=== PATIENT | female | born 1985 | race Caucasian/White ===

== ENCOUNTER 2019-05-03 17:49 | Emergency (ER) | payer OTHER, SELFPAY ==
[2019-05-03 18:02] VITALS: BP 123/71; PULSE 100; RESP 23; O2SAT 97; BMI 34.0
--- NOTE | 2019-05-03 18:14 | ED.SYNCOPE ---
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 She was participating kickball this afternoon, she fell lightheaded felt the ground was spinning and had decreased hearing. She felt that she needed to sit down to rest and she had a glass of water. Then, she had a episode of vomiting and do not remember until she aroused from syncopal episode. She denies injury from this for hitting her head on the ground. She denies having chest pain, breathing difficulty, severe headache prior to this. She reports she feels pretty well at this time. She denies a previous syncopal episode or cardiac history. Due to PCOS, she does not have regular menstruation and she is currently on oral control medication. According to EMS, initially her heart rate was at 20 is with sinus tach. Related Data Home Medications Medication Instructions Recorded Confirmed ipratropium-albuterol 3 ml INH PRN #0 05/27/17 Review of Systems <JOSE Potter - Last Filed: 05/03/19 21:19> Review of Systems General: Denies fever, chills, fatigue, malaise, sweats. HEENT: Denies sinus pain, ear pain, sore throat, difficulty swallowing, dizziness. Respiratory: Denies dyspnea, cough, wheezing, hemoptysis, sputum. Cardiovascular: Denies chest pain, palpitations, orthopnea, edema. Gastrointestinal: Head nausea and 1x vomiting. Denies abdominal pain, diarrhea, constipation, melena. : Denies dysuria, frequency, incontinence, hematuria, urinary retention. Musculoskeletal: Denies weakness, joint pain or bony pain. Skin: Denies rash, skin lesions, or other. Neurologic: Reports has dizziness, spinning sensation prior to syncope. Denies weakness, headache, numbness, change in speech, confusion, seizures, incoordination. Psychiatric: No concerning psychosocial issues. 12-point review of systems is negative except for those stated above. PFSH <JOSE Potter - Last Filed: 05/03/19 21:19> Medical History Acne (Acute) Asthma (Acute) PCOS (polycystic ovarian syndrome) (Acute) Surgical History History of primary section (Chronic) Social History Smoking Status: Never smoker Social History Smoking Status: Never smoker Exam <JOSE Potter - Last Filed: 05/03/19 21:19> Narrative Exam Narrative: GEN: Alert, oriented x 3, well appearing and nourished, and in no acute distress. Head: Normal cephalic, atraumatic. No scalp or temporal tenderness, palpable mass or rash. EYES: Pupils are equal, round, and reactive to light and accommodation. Extraocular muscles are intact bilaterally. There is no subconjunctival hemorrhage, exudate and sclera non-icteric. ENT: Bilateral auditory canals and tympanic membranes. Hearing grossly intact. Nose without bleeding, purulent discharge. Facial sinuses nontender to palpate. Mucous membrane moist, no mucosal lesion. Throat without erythema, tonsillar hypertrophy or exudate. Uvula in midline, airway patent. Neck: Trachea in midline. No JVD, non-tender without lymphadenopathy. No masses or thyroid megaly. Supple, non-tender and no meningeal signs. CARDIAC: Normal regular rate and rhythm without murmurs, gallops, or rubs. No chest wall tenderness. No peripheral edema, cyanosis or pallor. Capillary refill is less than 2 seconds. RESPIRATORY: Lungs are cleat to auscultate bilaterally. No cough, wheezes, rales, or rhonchi. No stridor, respiratory distress, increase work of breathing, or accessary muscle used. ABD: Abdomen soft, nontender and non-distended. No guarding or rebound tenderness to palpate. Bowel sounds are normal in all 4 quadrants. There is no palpable masses or organomegaly. EXT: Full painless ROM of all extremities with no loss of sensation, strength, effusion or edema. SKIN: Warm, dry, normal color for patient. No erythema, lesions or rash. BACK: Nontender without deformity or crepitance. No flank tenderness. NEUROLOGICAL: Alert and oriented to place, time and person. Sensation and motor function intact bilaterally. No facial droops, dysphasia. PSYCHIATRIC: Good judgement and reason, without hallucinations, abnormal affect or abnormal behaviors during the examination. Initial Vital Signs Initial Vital Signs: Vital Signs Pulse Rate 100 H 05/03/19 18:02 Respiratory Rate 23 05/03/19 18:02 Blood Pressure 123/71 05/03/19 18:02 Pulse Oximetry 97 05/03/19 18:02 Neuro General: alert, awake, oriented x3, tone normal, moves all extremities, no focal motor deficits and CN's II-XI intact bilaterally Cognition: normal cognition Speech: speech normal <Negrita Clark DO - Last Filed: 05/04/19 02:57> Initial Vital Signs Initial Vital Signs: Vital Signs Pulse Rate 100 H 05/03/19 18:02 Respiratory Rate 23 05/03/19 18:02 Blood Pressure 123/71 05/03/19 18:02 Pulse Oximetry 97 05/03/19 18:02 Course <JOSE Potter - Last Filed: 05/03/19 21:19> Orders Ordered: ED Orders 05/03/19 18:00 EKG-12 Lead Stat 05/03/19 18:12 Complete Blood Count AUTO DIFF Stat Comprehensive Metabolic Panel Stat Troponin & CK Cardiac Panel Stat 05/03/19 19:50 Urine Microscopic Stat 05/03/19 20:11 XR chest 1V Stat Vital Signs - 8 hr 05/03/19 19:30 05/03/19 20:55 Pulse Rate 100 H 93 H Respiratory Rate 20 16 Blood Pressure [Right Arm] 110/65 126/72 Pulse Oximetry 100 96 <DO Brandon Aguilar Last Filed: 05/04/19 02:57> Orders Ordered: ED Orders 05/03/19 18:00 EKG-12 Lead Stat 05/03/19 18:12 Complete Blood Count AUTO DIFF Stat Comprehensive Metabolic Panel Stat Troponin & CK Cardiac Panel Stat 05/03/19 19:50 Urine Microscopic Stat 05/03/19 20:11 XR chest 1V Stat Vital Signs - 8 hr 05/03/19 19:30 05/03/19 20:55 Pulse Rate 100 H 93 H Respiratory Rate 20 16 Blood Pressure [Right Arm] 110/65 126/72 Pulse Oximetry 100 96 MDM - Syncope <MONSTER PotterP - Last Filed: 05/03/19 21:19> Differential Diagnosis Likely syncope due to orthostatic hypotension and dehydration Medical Records Attestation: I reviewed the patient's medical records. Lab Data Attestation: I reviewed the patient's lab results. Result diagrams: 05/03/19 18:12 05/03/19 18:12 Lab Results 05/03/19 05/03/19 05/03/19 Range/Units 18:12 18:12 19:50 WBC 13.0 H (4.5-11.0) X10^3/uL RBC 4.83 (4.0-5.2) X10^6/uL Hgb 13.4 (12.0-16.0) g/dL Hct 39.9 (36-46) % MCV 82.6 (80-100) fL MCH 27.7 (26-34) PG MCHC 33.5 (30-36) % RDW 14.0 (11.6-14.8) % Plt Count 399 (150-400) X10^3/uL Neut % (Auto) 84.4 H (50-75) % Lymph % (Auto) 10.7 L (25-40) % Ritchie % (Auto) 3.8 (3-14) % Eos % (Auto) 0.6 L (2-4) % Baso % (Auto) 0.5 (0-2) % Neut # (Auto) 99116 H (4925-0344) /uL Lymph # (Auto) 1400 (9308-9101) /uL Ritchie # (Auto) 500 (0-900) /uL Eos # (Auto) 100 (0-450) /uL Baso # (Auto) 100 (0-100) /uL Sodium 141 (137-145) mmol/L Potassium 4.3 (3.4-5.1) mmol/L Chloride 106 (98-107) mmol/L Carbon Dioxide 23 (22-32) mmol/L BUN 10 (7-17) mg/dL Creatinine 0.60 (0.52-1.04) mg/dL Estimated GFR > 60.0 (>60) mL/min BUN/Creatinine Ratio 16.7 (6-22) Glucose 105 H (70-100) mg/dL Calcium 9.7 (8.4-10.2) mg/dL Total Bilirubin 0.4 (0.2-1.3) mg/dL AST 24 (14-36) IU/L ALT 17 (9-52) IU/L Alkaline Phosphatase 64 (38-126) U/L Total Creatine Kinase 73 (30-135) U/L CK-MB (CK-2) TNP CK-MB (CK-2) Rel Index TNP Troponin I < 0.012 (0.01-0.034) ng/mL Total Protein 8.5 H (6.3-8.2) g/dL Albumin 4.7 (3.5-5.0) g/dL Globulin 3.8 (1.7-4.1) g/dL Albumin/Globulin Ratio 1.2 (1.0-2.8) Urine RBC 0-1/hpf (0-5/HPF) Urine WBC 1-5/hpf (0-5/HPF) Ur Squamous Epith Cells 10-30 /hpf H (0-5/HPF) Ur Transition Epith Cell 0-1/hpf (0-5/HPF) Urine Bacteria Moderate (10-30) H (None) Hyaline Casts 5-10/lpf (None) Granular Casts 5-10/lpf (None) Urine Mucus 2+ H (Negative) Ur Culture Indicated? Cult not indicated Urine Dip Bedside Urine Glucose Negative Bedside Urine Bilirubin - Negative Bedside Urine Ketone ++ 40 Urine Specific Emily 1.025 Bedside Urine Occult Blood +/- Bedside Urine pH 6.0 Bedside Urine Protein + 30 Bedside Urine Urobilinogen - Negative Bedside Urine Nitrite - Negative Bedside Urine Leukocytes - Negative Esterase Imaging Data Chest x-ray: Radiologist's impression: Mayda Ray 33 F [address] [address] XRay Report Signed Patient: Mayda Ray RMR#: [id number] : 1985Acct:[id number] Age/Sex: 33 / FDate of Service: 05/03/19 Loc: ED Accession Number: [id number] Procedure: XR chest 1V Ordering Provider: Osbaldo Borrero PROCEDURE: XR CHEST 1V INDICATIONS: syncopal episode TECHNIQUE: One view of the chest was acquired. COMPARISON: CXR 09/22/2007. FINDINGS: Surgical changes and devices: None. Lungs and pleura: Lungs are clear. No pleural effusions or pneumothorax. Mediastinum: Mediastinal contours appear normal. Heart size is normal. Bones and chest wall: No suspicious bony lesions. Overlying soft tissues appear unremarkable. IMPRESSION: No acute cardiopulmonary abnormality. Dictated by: Yuriy Person M.D. on 05/03/2019 at 20:45 Approved by: Yuriy Person M.D. on 05/03/2019 at 20:45 ECG Data Attestation: I personally reviewed and interpreted this ECG as follows: Prior ECG tracings: available for review Interpretation: Sinus rhythm rate at eighty sixty with a normal Stanley. No ST elevation or depression. MDM Narrative Medical decision making narrative: This is a pleasant 33-year-old female who was brought in by [employer] medics after patient had a syncopal episode after patient had an syncopal episode when she was participating she kicked a ball. The patient reports she was feeling dizzy and had to sit down to rest. She had a cup of water to drink and does not remember until she woke from the syncope. She reports she was feeling well prior to the syncopal episode. She has no history of previous cardiac history or syncope. The patient denies feeling dehydrated prior to this. The patient's EKG was normal sinus rhythm in its rate 86. The patient's chemistry was unremarkable including troponin. Her chest x-ray was negative for acute findings. White count was mildly elevated along neutrophil. Urine sample appears to without obvious infection and possibly contaminated rincon sample was obtained. The patient does not endorse have any urinary symptoms such as urgency frequency, frequency or dysuria. Patient had right hand IV site infiltration in route by medics. She complained of pain and declines IV restart if possible. Patient was hydrated orally while in the ED without nausea and vomiting. We discussed in length of return precautions and the patient's father states patient will be staying with him tonight. Patient advised to follow up with her primary care physician in 2-3 days for re-evaluation and further testing for the cause of syncopal episode. The patient agrees with treatment plan and no further questions were expressed at this time. <Negrita Clark, DO - Last Filed: 05/04/19 02:57> Lab Data Lab Results 05/03/19 05/03/19 05/03/19 Range/Units 18:12 18:12 19:50 WBC 13.0 H (4.5-11.0) X10^3/uL RBC 4.83 (4.0-5.2) X10^6/uL Hgb 13.4 (12.0-16.0) g/dL Hct 39.9 (36-46) % MCV 82.6 (80-100) fL MCH 27.7 (26-34) PG MCHC 33.5 (30-36) % RDW 14.0 (11.6-14.8) % Plt Count 399 (150-400) X10^3/uL Neut % (Auto) 84.4 H (50-75) % Lymph % (Auto) 10.7 L (25-40) % Ritchie % (Auto) 3.8 (3-14) % Eos % (Auto) 0.6 L (2-4) % Baso % (Auto) 0.5 (0-2) % Neut # (Auto) 37060 H (6786-2211) /uL Lymph # (Auto) 1400 (1450-3268) /uL Ritchie # (Auto) 500 (0-900) /uL Eos # (Auto) 100 (0-450) /uL Baso # (Auto) 100 (0-100) /uL Sodium 141 (137-145) mmol/L Potassium 4.3 (3.4-5.1) mmol/L Chloride 106 (98-107) mmol/L Carbon Dioxide 23 (22-32) mmol/L BUN 10 (7-17) mg/dL Creatinine 0.60 (0.52-1.04) mg/dL Estimated GFR > 60.0 (>60) mL/min BUN/Creatinine Ratio 16.7 (6-22) Glucose 105 H (70-100) mg/dL Calcium 9.7 (8.4-10.2) mg/dL Total Bilirubin 0.4 (0.2-1.3) mg/dL AST 24 (14-36) IU/L ALT 17 (9-52) IU/L Alkaline Phosphatase 64 (38-126) U/L Total Creatine Kinase 73 (30-135) U/L CK-MB (CK-2) TNP CK-MB (CK-2) Rel Index TNP Troponin I < 0.012 (0.01-0.034) ng/mL Total Protein 8.5 H (6.3-8.2) g/dL Albumin 4.7 (3.5-5.0) g/dL Globulin 3.8 (1.7-4.1) g/dL Albumin/Globulin Ratio 1.2 (1.0-2.8) Urine RBC 0-1/hpf (0-5/HPF) Urine WBC 1-5/hpf (0-5/HPF) Ur Squamous Epith Cells 10-30 /hpf H (0-5/HPF) Ur Transition Epith Cell 0-1/hpf (0-5/HPF) Urine Bacteria Moderate (10-30) H (None) Hyaline Casts 5-10/lpf (None) Granular Casts 5-10/lpf (None) Urine Mucus 2+ H (Negative) Ur Culture Indicated? Cult not indicated Urine Dip Bedside Urine Glucose Negative Bedside Urine Bilirubin - Negative Bedside Urine Ketone ++ 40 Urine Specific Emily 1.025 Bedside Urine Occult Blood +/- Bedside Urine pH 6.0 Bedside Urine Protein + 30 Bedside Urine Urobilinogen - Negative Bedside Urine Nitrite - Negative Bedside Urine Leukocytes - Negative Esterase ECG Data Attestation: I personally reviewed and interpreted this ECG as follows: Prior ECG tracings: not available for review Interpretation: Normal sinus rhythm rate 86 P are interval [address] elevation ST changes noted in inferior leads likely benign early physician all no concordant ST depressions or T-wave inversions. Discharge Plan Departure Patient Disposition: Home Clinical Impression: Syncope Qualifiers: Syncope type: unspecified Qualified Code(s): R55 - Syncope and collapse Discharge Date/Time: 05/03/19 21:10 Interventions: ED Discharge Assessment Last Done: 05/03/19 21:12 Instructions: DI for Syncope in Adults (Fainting) Activity Restrictions/Additional Instructions: You have been diagnosed with [syncope/passing out. You're EKG looked good as sinus rhythm rate at 85. Your blood test was unremarkable including cardiac enzymes. However, your white blood cell count was mildly elevated. Your urine sample does not appear to be infected but possibly contaminated sample. You're chest x-ray was negative for acute findings.]. What to do: *Take your medications as directed. There is no new medications to go home. *Follow up with your primary care provider in 2-3 days, call for an appointment. Let them know you were seen in the ED and that we asked you to be seen in follow up. *Return to ED if you have any new, worsening, or concerning symptoms, such as [fainting episodes, chest pain, breathing difficulty, fatigue, unable to tolerate fluids, fever, severe headache or any acute concerns]. Prescriptions: No Action ipratropium-albuterol 3 ML solution for nebulization 3 ml INH PRNQty: 0 RF: 0 Referrals: [facility] [Outside] <Negrita Clark DO - Last Filed: 05/04/19 02:57> Cosign ED Attending Loretta Attestation: I was immediately available in the department for consultation. Documentation has been reviewed. I agree with assessment and plan.
[2019-05-03 18:20] LABS: Add Manual Diff / Slide Review NO; Basophils Absolute Auto 100 /uL (0-100); Basophils Percent Auto 0.5 % (0-2); Eosinophils Absolute Auto 100 /uL (0-450); Eosinophils Percent Auto 0.6 % (2-4); Hematocrit 39.9 % (36-46); Hemoglobin 13.4 g/dL (12.0-16.0); Lymphocytes Absolute Auto 1400 /uL (1100-4500); Lymphocytes Percent Auto 10.7 % (25-40); Mean Corpuscular HGB Conc 33.5 % (30-36); Mean Corpuscular Hemoglobin 27.7 PG (26-34); Mean Corpuscular Volume 82.6 fL (80-100); Monocytes Absolute Auto 500 /uL (0-900); Monocytes Percent Auto 3.8 % (3-14); Neutrophils Absolute Auto 11000 /uL (1500-7000); Neutrophils Percent Auto 84.4 % (50-75); Platelet Count 399 X10^3/uL (150-400); Red Blood Cell Count 4.83 X10^6/uL (4.0-5.2)
--- NOTE | 2019-05-03 18:22 | ED_ITS ---
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 She was participating kickball this afternoon, she fell lightheaded felt the ground was spinning and had decreased hearing. She felt that she needed to sit down to rest and she had a glass of water. Then, she had a episode of vomiting and do not remember until she aroused from syncopal episode. She denies injury from this for hitting her head on the ground. She denies having chest pain, breathing difficulty, severe headache prior to this. She reports she feels pretty well at this time. She denies a previous syncopal episode or cardiac history. Due to PCOS, she does not have regular menstruation and she is currently on oral control medication. According to EMS, initially her heart rate was at 20 is with sinus tach. Related Data Home Medications Medication Instructions Recorded Confirmed ipratropium-albuterol 3 ml INH PRN #0 05/27/17 Review of Systems <Osbaldo NapolesBrandonJOSE Dorantes - Last Filed: 05/03/19 21:19> Review of Systems General: Denies fever, chills, fatigue, malaise, sweats. HEENT: Denies sinus pain, ear pain, sore throat, difficulty swallowing, dizziness. Respiratory: Denies dyspnea, cough, wheezing, hemoptysis, sputum. Cardiovascular: Denies chest pain, palpitations, orthopnea, edema. Gastrointestinal: Head nausea and 1x vomiting. Denies abdominal pain, d iarrhea, constipation, melena. : Denies dysuria, frequency, incontinence, hematuria, urinary retention. Musculoskeletal: Denies weakness, joint pain or bony pain. Skin: Denies rash, skin lesions, or other. Neurologic: Reports has dizziness, spinning sensation prior to syncope. Denies weakness, headache, numbness, change in speech, confusion, seizures, incoordination. Psychiatric: No concerning psychosocial issues. 12-point review of systems is negative except for those stated above. PFSH <JOSE Potter - Last Filed: 05/03/19 21:19> Medical History Acne (Acute) Asthma (Acute) PCOS (polycystic ovarian syndrome) (Acute) Surgical History History of primary section (Chronic) Social History Smoking Status: Never smoker Social History Smoking Status: Never smoker Exam <JOSE Potter - Last Filed: 05/03/19 21:19> Narrative Exam Narrative: GEN: Alert, oriented x 3, well appearing and nourished, and in no acute distress. Head: Normal cephalic, atraumatic. No scalp or temporal tenderness, palpable mass or rash. EYES: Pupils are equal, round, and reactive to light and accommodation. Extraocular muscles are intact bilaterally. There is no subconjunctival hemorrhage, exudate and sclera non-icteric. ENT: Bilateral auditory canals and tympanic membranes. Hearing grossly intact. Nose without bleeding, purulent discharge. Facial sinuses nontender to palpate. Mucous membrane moist, no mucosal lesion. Throat without erythema, tonsillar hypertrophy or exudate. Uvula in midline, airway patent. Neck: Trachea in midline. No JVD, non-tender without lymphadenopathy. No masses or thyroid megaly. Supple, non-tender and no meningeal signs. CARDIAC: Normal regular rate and rhythm without murmurs, gallops, or rubs. No chest wall tenderness. No peripheral edema, cyanosis or pallor. Capillary refill is less than 2 seconds. RESPIRATORY: Lungs are cleat to auscultate bilaterally. No cough, wheezes, rales, or rhonchi. No stridor, respiratory distress, increase work of breathing, or accessary muscle used. ABD: Abdomen soft, nontender and non-distended. No guarding or rebound tenderness to palpate. Bowel sounds are normal in all 4 quadrants. There is no palpable masses or organomegaly. EXT: Full painless ROM of all extremities with no loss of sensation, strength, effusion or edema. SKIN: Warm, dry, normal color for patient. No erythema, lesions or rash. BACK: Nontender without deformity or crepitance. No flank tenderness. NEUROLOGICAL: Alert and oriented to place, time and person. Sensation and motor function intact bilaterally. No facial droops, dysphasia. PSYCHIATRIC: Good judgement and reason, without hallucinations, abnormal affect or abnormal behaviors during the examination. Initial Vital Signs Initial Vital Signs: Vital Signs Pulse Rate 100 H 05/03/19 18:02 Respiratory Rate 23 05/03/19 18:02 Blood Pressure 123/71 05/03/19 18:02 Pulse Oximetry 97 05/03/19 18:02 Neuro General: alert, awake, oriented x3, tone normal, moves all extremities, no focal motor deficits and CN's II-XI intact bilaterally Cognition: normal cognition Speech: speech normal <Negrita Clark DO - Last Filed: 05/04/19 02:57> Initial Vital Signs Initial Vital Signs: Vital Signs Pulse Rate 100 H 05/03/19 18:02 Respiratory Rate 23 05/03/19 18:02 Blood Pressure 123/71 05/03/19 18:02 Pulse Oximetry 97 05/03/19 18:02 Course <JOSE Potter - Last Filed: 05/03/19 21:19> Orders Ordered: ED Orders 05/03/19 18:00 EKG-12 Lead Stat 05/03/19 18:12 Complete Blood Count AUTO DIFF Stat Comprehensive Metabolic Panel Stat Troponin & CK Cardiac Panel Stat 05/03/19 19:50 Urine Microscopic Stat 05/03/19 20:11 XR chest 1V Stat Vital Signs - 8 hr 05/03/19 19:30 05/03/19 20:55 Pulse Rate 100 H 93 H Respiratory Rate 20 16 Blood Pressure [Right Arm] 110/65 126/72 Pulse Oximetry 100 96 <DO Brandon Aguilar Last Filed: 05/04/19 02:57> Orders Ordered: ED Orders 05/03/19 18:00 EKG-12 Lead Stat 05/03/19 18:12 Complete Blood Count AUTO DIFF Stat Comprehensive Metabolic Panel Stat Troponin & CK Cardiac Panel Stat 05/03/19 19:50 Urine Microscopic Stat 05/03/19 20:11 XR chest 1V Stat Vital Signs - 8 hr 05/03/19 19:30 05/03/19 20:55 Pulse Rate 100 H 93 H Respiratory Rate 20 16 Blood Pressure [Right Arm] 110/65 126/72 Pulse Oximetry 100 96 MDM - Syncope <MONSTER PotterP - Last Filed: 05/03/19 21:19> Differential Diagnosis Likely syncope due to orthostatic hypotension and dehydration Medical Records Attestation: I reviewed the patient's medical records. Lab Data Attestation: I reviewed the patient's lab results. Result diagrams: 05/03/19 18:12 05/03/19 18:12 Lab Results 05/03/19 05/03/19 05/03/19 Range/Units 18:12 18:12 19:50 WBC 13.0 H (4.5-11.0) X10^3/uL RBC 4.83 (4.0-5.2) X10^6/uL Hgb 13.4 (12.0-16.0) g/dL Hct 39.9 (36-46) % MCV 82.6 (80-100) fL MCH 27.7 (26-34) PG MCHC 33.5 (30-36) % RDW 14.0 (11.6-14.8) % Plt Count 399 (150-400) X10^3/uL Neut % (Auto) 84.4 H (50-75) % Lymph % (Auto) 10.7 L (25-40) % Johnston % (Auto) 3.8 (3-14) % Eos % (Auto) 0.6 L (2-4) % Baso % (Auto) 0.5 (0-2) % Neut # (Auto) 26099 H (4333-8597) /uL Lymph # (Auto) 1400 (7206-2447) /uL Johnston # (Auto) 500 (0-900) /uL Eos # (Auto) 100 (0-450) /uL Baso # (Auto) 100 (0-100) /uL Sodium 141 (137-145) mmol/L Potassium 4.3 (3.4-5.1) mmol/L Chloride 106 (98-107) mmol/L Carbon Dioxide 23 (22-32) mmol/L BUN 10 (7-17) mg/dL Creatinine 0.60 (0.52-1.04) mg/dL Estimated GFR > 60.0 (>60) mL/min BUN/Creatinine Ratio 16.7 (6-22) Glucose 105 H (70-100) mg/dL Calcium 9.7 (8.4-10.2) mg/dL Total Bilirubin 0.4 (0.2-1.3) mg/dL AST 24 (14-36) IU/L ALT 17 (9-52) IU/L Alkaline Phosphatase 64 (38-126) U/L Total Creatine Kinase 73 (30-135) U/L CK-MB (CK-2) TNP CK-MB (CK-2) Rel Index TNP Troponin I < 0.012 (0.01-0.034) ng/mL Total Protein 8.5 H (6.3-8.2) g/dL Albumin 4.7 (3.5-5.0) g/dL Globulin 3.8 (1.7-4.1) g/dL Albumin/Globulin Ratio 1.2 (1.0-2.8) Urine RBC 0-1/hpf (0-5/HPF) Urine WBC 1-5/hpf (0-5/HPF) Ur Squamous Epith Cells 10-30 /hpf H (0-5/HPF) Ur Transition Epith Cell 0-1/hpf (0-5/HPF) Urine Bacteria Moderate (10-30) H (None) Hyaline Casts 5-10/lpf (None) Granular Casts 5-10/lpf (None) Urine Mucus 2+ H (Negative) Ur Culture Indicated? Cult not indicated Urine Dip Bedside Urine Glucose Negative Bedside Urine Bilirubin - Negative Bedside Urine Ketone ++ 40 Urine Specific [place] 1.025 Bedside Urine Occult Blood +/- Bedside Urine pH 6.0 Bedside Urine Protein + 30 Bedside Urine Urobilinogen - Negative Bedside Urine Nitrite - Negative Bedside Urine Leukocytes - Negative Esterase Imaging Data Chest x-ray: Radiologist's impression: Mayda Ray R 33 F [address] [address] XRay Report Signed Patient: Mayda Ray RMR#: [id number] : 1985Acct:[id number] Age/Sex: 33 / FDate of Service: 05/03/19 Loc: ED Accession Number: [id number] Procedure: XR chest 1V Ordering Provider: Osbaldo Borrero PROCEDURE: XR CHEST 1V INDICATIONS: syncopal episode TECHNIQUE: One view of the chest was acquired. COMPARISON: CXR 09/22/2007. FINDINGS: Surgical changes and devices: None. Lungs and pleura: Lungs are clear. No pleural effusions or pneumothorax. Mediastinum: Mediastinal contours appear normal. Heart size is normal. Bones and chest wall: No suspicious bony lesions. Overlying soft tissues appear unremarkable. IMPRESSION: No acute cardiopulmonary abnormality. Dictated by: Yuriy Person M.D. on 05/03/2019 at 20:45 Approved by: Yuriy Person M.D. on 05/03/2019 at 20:45 ECG Data Attestation: I personally reviewed and interpreted this ECG as follows: Prior ECG tracings: available for review Interpretation: Sinus rhythm rate at eighty sixty with a normal [place]. No ST elevation or depression. MDM Narrative Medical decision making narrative: This is a pleasant 33-year-old female who was brought in by [employer] medics after patient had a syncopal episode after patient had an syncopal episode when she was participating she kicked a ball. The patient reports she was feeling dizzy and had to sit down to rest. She had a cup of water to drink and does not remember until she woke from the syncope. She reports she was feeling well prior to the syncopal episode. She has no history of previous cardiac history or syncope. The patient denies feeling dehydrated prior to this. The patient's EKG was normal sinus rhythm in its rate 86. The patient's chemistry was unremarkable including troponin. Her chest x- ray was negative for acute findings. White count was mildly elevated along neutrophil. Urine sample appears to without obvious infection and possibly contaminated [place] sample was obtained. The patient does not endorse have any urinary symptoms such as urgency frequency, frequency or dysuria. Patient had right hand IV site infiltration in route by medics. She complained of pain and declines IV restart if possible. Patient was hydrated orally while in the ED without nausea and vomiting. We discussed in length of return precautions and the patient's father states patient will be staying with him tonight. Patient advised to follow up with her primary care physician in 2-3 days for re- evaluation and further testing for the cause of syncopal episode. The patient agrees with treatment plan and no further questions were expressed at this time. <Negrita Clark, DO - Last Filed: 05/04/19 02:57> Lab Data Lab Results 05/03/19 05/03/19 05/03/19 Range/Units 18:12 18:12 19:50 WBC 13.0 H (4.5-11.0) X10^3/uL RBC 4.83 (4.0-5.2) X10^6/uL Hgb 13.4 (12.0-16.0) g/dL Hct 39.9 (36-46) % MCV 82.6 (80-100) fL MCH 27.7 (26-34) PG MCHC 33.5 (30-36) % RDW 14.0 (11.6-14.8) % Plt Count 399 (150-400) X10^3/uL Neut % (Auto) 84.4 H (50-75) % Lymph % (Auto) 10.7 L (25-40) % Johnston % (Auto) 3.8 (3-14) % Eos % (Auto) 0.6 L (2-4) % Baso % (Auto) 0.5 (0-2) % Neut # (Auto) 30342 H (0714-0465) /uL Lymph # (Auto) 1400 (8683-2757) /uL Johnston # (Auto) 500 (0-900) /uL Eos # (Auto) 100 (0-450) /uL Baso # (Auto) 100 (0-100) /uL Sodium 141 (137-145) mmol/L Potassium 4.3 (3.4-5.1) mmol/L Chloride 106 (98-107) mmol/L Carbon Dioxide 23 (22-32) mmol/L BUN 10 (7-17) mg/dL Creatinine 0.60 (0.52-1.04) mg/dL Estimated GFR > 60.0 (>60) mL/min BUN/Creatinine Ratio 16.7 (6-22) Glucose 105 H (70-100) mg/dL Calcium 9.7 (8.4-10.2) mg/dL Total Bilirubin 0.4 (0.2-1.3) mg/dL AST 24 (14-36) IU/L ALT 17 (9-52) IU/L Alkaline Phosphatase 64 (38-126) U/L Total Creatine Kinase 73 (30-135) U/L CK-MB (CK-2) TNP CK-MB (CK-2) Rel Index TNP Troponin I < 0.012 (0.01-0.034) ng/mL Total Protein 8.5 H (6.3-8.2) g/dL Albumin 4.7 (3.5-5.0) g/dL Globulin 3.8 (1.7-4.1) g/dL Albumin/Globulin Ratio 1.2 (1.0-2.8) Urine RBC 0-1/hpf (0-5/HPF) Urine WBC 1-5/hpf (0-5/HPF) Ur Squamous Epith Cells 10-30 /hpf H (0-5/HPF) Ur Transition Epith Cell 0-1/hpf (0-5/HPF) Urine Bacteria Moderate (10-30) H (None) Hyaline Casts 5-10/lpf (None) Granular Casts 5-10/lpf (None) Urine Mucus 2+ H (Negative) Ur Culture Indicated? Cult not indicated Urine Dip Bedside Urine Glucose Negative Bedside Urine Bilirubin - Negative Bedside Urine Ketone ++ 40 Urine Specific [place] 1.025 Bedside Urine Occult Blood +/- Bedside Urine pH 6.0 Bedside Urine Protein + 30 Bedside Urine Urobilinogen - Negative Bedside Urine Nitrite - Negative Bedside Urine Leukocytes - Negative Esterase ECG Data Attestation: I personally reviewed and interpreted this ECG as follows: Prior ECG tracings: not available for review Interpretation: Normal sinus rhythm rate 86 P are interval [address] elevation ST changes noted in inferior leads likely benign early physician all no concordant ST depressions or T-wave inversions. Discharge Plan Departure Patient Disposition: Home Clinical Impression: Syncope Qualifiers: Syncope type: unspecified Qualified Code(s): R55 - Syncope and collapse Discharge Date/Time: 05/03/19 21:10 Interventions: ED Discharge Assessment Last Done: 05/03/19 21:12 Instructions: DI for Syncope in Adults (Fainting) Activity Restrictions/Additional Instructions: You have been diagnosed with [syncope/passing out. You're EKG looked good as sinus rhythm rate at 85. Your blood test was unremarkable including cardiac enzymes. However, your white blood cell count was mildly elevated. Your urine sample does not appear to be infected but possibly contaminated sample. You're chest x-ray was negative for acute findings.]. What to do: *Take your medications as directed. There is no new medications to go home. *Follow up with your primary care provider in 2-3 days, call for an appointment. Let them know you were seen in the ED and that we asked you to be seen in follow up. *Return to ED if you have any new, worsening, or concerning symptoms, such as [fainting episodes, chest pain, breathing difficulty, fatigue, unable to tolerate fluids, fever, severe headache or any acute concerns]. Prescriptions: No Action ipratropium-albuterol 3 ML solution for nebulization 3 ml INH PRNQty: 0 RF: 0 Referrals: [facility] [Outside] <Negrita Clark DO - Last Filed: 05/04/19 02:57> Cosign ED Attending Loretta Attestation: I was immediately available in the department for consultation. Documentation has been reviewed. I agree with assessment and plan.
[2019-05-03 18:31] LABS: Alanine Aminotransferase 17 IU/L (9-52); Albumin 4.7 g/dL (3.5-5.0); Albumin Globulin Ratio 1.2 (1.0-2.8); Alkaline Phosphatase 64 U/L (38-126); Aspartate Aminotransferase 24 IU/L (14-36); BUN Creatinine Ratio 16.7 (6-22); Bilirubin Total 0.4 mg/dL (0.2-1.3); Blood Urea Nitrogen 10 mg/dL (7-17); Calcium 9.7 mg/dL (8.4-10.2); Carbon Dioxide 23 mmol/L (22-32); Chloride 106 mmol/L (98-107); Creatine Kinase 73 U/L (30-135); Estimated Glomerular Filt Rate > 60.0 mL/min (>60); Globulin 3.8 g/dL (1.7-4.1); Glucose 105 mg/dL (70-100); HEMOLYSIS < 15 (0-50); Potassium 4.3 mmol/L (3.4-5.1); Sodium 141 mmol/L (137-145); Total Protein 8.5 g/dL (6.3-8.2)
[2019-05-03 18:43] LABS: Troponin I < 0.012 ng/mL (0.01-0.034)
[2019-05-03 19:30] VITALS: BP 110/65; PULSE 100; RESP 20; O2SAT 100
--- NOTE | 2019-05-03 20:11 | DI.RAD.S_ITS ---
PROCEDURE: XR CHEST 1V INDICATIONS: syncopal episode TECHNIQUE: One view of the chest was acquired. COMPARISON: CXR 09/22/2007. FINDINGS: Surgical changes and devices: None. Lungs and pleura: Lungs are clear. No pleural effusions or pneumothorax. Mediastinum: Mediastinal contours appear normal. Heart size is normal. Bones and chest wall: No suspicious bony lesions. Overlying soft tissues appear unremarkable. IMPRESSION: No acute cardiopulmonary abnormality. Dictated by: Yuriy Person M.D. on 05/03/2019 at 20:45 Approved by: Yuriy Person M.D. on 05/03/2019 at 20:45
[2019-05-03 20:29] LABS: Bacteria Urine Moderate (10-30); Culture Indicated Urine Cult Not Indicated; Granular Casts Urine 5-10/LPF; Hyaline Casts Urine 5-10/LPF; Mucus Urine 2+ (Negative); RBC Urine 0-1/HPF (0-5/HPF); Squamous Epithelial Cell Urine 10-30 /HPF (0-5/HPF); Transitional Epi Cells Urine 0-1/HPF (0-5/HPF); WBC Urine 1-5/HPF (0-5/HPF)
[2019-05-03 20:55] VITALS: BP 126/72; PULSE 93; RESP 16; O2SAT 96
== END 2019-05-03 21:10 | disposition home or self-care (01) ==
PROVIDERS: Emergency Provider Nurse Practitioner Family
DX: R55 Syncope and collapse (principal)
CPT/HCPCS: 36415; 71045; 80053; 81003; 81015; 82550; 84484; 85025; 93005; 93010; 99282; 99285